=== PATIENT | female | born 1950 | race Caucasian/White ===

== ENCOUNTER 2023-08-29 16:13 | Emergency (ER) | payer OTHER ==
[~2023-08-29] VITALS: Ht 162.6 cm; Wt 68.9 kg
[2023-08-29 17:01] VITALS: BP_SYST 134; PULSE 71; RESP 18; TEMP 97.5; O2SAT 97
[2023-08-29 17:49] LABS: COVID19 ANTIGEN SOFIA FIA NEGATIVE (NEGATIVE)
[2023-08-29 17:50] LABS: INFLUENZA TYPE A Negative (NEGATIVE); INFLUENZA TYPE B NEGATIVE (NEGATIVE)
[2023-08-29] MEDS ORDERED: ALBMDI INH (18:32)
[2023-08-29] MEDS ORDERED: LEVO-62 PO (18:32)
[2023-08-29] MEDS ORDERED: PRED20TA PO (18:32)
== END 2023-08-29 18:45 | disposition home or self-care (01) ==
LOC: SED 16:13
DX: R05.9 Cough, unspecified (principal); R09.89 Other specified symptoms and signs involving the circulatory and respiratory systems; J34.89 Other specified disorders of nose and nasal sinuses; E78.5 Hyperlipidemia, unspecified; Z20.822 Contact with and (suspected) exposure to COVID-19; Z88.0 Allergy status to penicillin
CPT/HCPCS: 36415; 71045; 99284